=== PATIENT | male | born 1995 | race Caucasian/White ===

== ENCOUNTER 2024-03-26 20:53 | Emergency (ER) | payer MEDICAID ==
[~2024-03-26] VITALS: Ht 177.8 cm; Wt 70.0 kg
[2024-03-26 21:21] VITALS: O2SAT 100
[2024-03-27] MEDS ORDERED: FAMO40TA70 MT (01:45)
[2024-03-27 02:00] VITALS: BP 111/59; PULSE 74; RESP 18; TEMP 36.66960; O2SAT 100
== END 2024-03-27 02:00 | disposition home or self-care (01) ==
LOC: ER 20:53
DX: R07.89 Other chest pain (principal); K21.9 Gastro-esophageal reflux disease without esophagitis; Z90.49 Acquired absence of other specified parts of digestive tract
CPT/HCPCS: 71045; 93005; 99283

== ENCOUNTER 2024-06-11 22:56 | Emergency (ER) | payer MEDICAID, OTHER ==
[~2024-06-11] VITALS: Ht 175.3 cm; Wt 70.7 kg
[~2024-06-11 22:56] MED LIST: FAMO40TA70 MT
[2024-06-11 23:03] VITALS: O2SAT 99
[2024-06-12 00:09] LABS: CARBON DIOXIDE 28 mEq/L (21-32); CHLORIDE 106 mEq/L (98-107); SODIUM 142 mEq/L (136-145)
[2024-06-12 00:10] LABS: CALCIUM 9.4 mg/dL (8.7-10.4)
[2024-06-12 00:14] LABS: CREATININE 0.9 mg/dL (0.6-1.3)
[2024-06-12 00:15] LABS: GLUCOSE 124 mg/dL (70-105); UREA NITROGEN BLOOD 16 mg/dL (9-23)
[2024-06-12 00:16] LABS: ALANINE AMINOTRANSFERASE 15 IU/L (10-49)
[2024-06-12 00:17] LABS: ALBUMIN 4.5 g/dL (3.2-4.8); ASPARTATE AMINOTRANSFERASE 14 IU/L (<34); BILIRUBIN TOTAL 0.3 mg/dL (0.1-1.0); PROTEIN TOTAL 7.3 g/dL (6.0-8.3)
[2024-06-12 00:20] LABS: BILIRUBIN DIRECT < 0.1 mg/dL (<=3.0)
[2024-06-12 01:10] LABS: BASOPHILS % 0.3 % (0.0-2.0); EOSINOPHILS % 0.2 % (0.0-5.0); HEMATOCRIT. 41.1 % (42.0-52.0); HEMOGLOBIN. 13.7 g/dL (14.0-18.0); LYMPHOCYTES % 15.4 % (20.0-50.0); MEAN CORPUSCULAR HEMOGLOBIN 28.2 pg (28.0-32.0); MEAN CORPUSCULAR HGB CONC 33.3 g/dL (31.0-37.0); MEAN CORPUSCULAR VOLUME 84.6 fL (80.0-94.0); MEAN PLATELET VOLUME 11.4 fl (7.4-10.4); NEUTROPHILS % 80.1 % (40.0-76.0); PLATELET 207 x1000/uL (130-400); RED BLOOD CELL COUNT 4.86 mill/uL (4.7-6.1); RED CELL DISTRIBUTION WIDTH 13.5 % (11.6-14.6); WHITE BLOOD COUNT 11.8 x1000/uL (4.5-11.0)
[2024-06-12] MEDS ORDERED: POLY119P2 MT (01:37)
[2024-06-12 02:13] VITALS: BP 129/69; PULSE 68; RESP 18; TEMP 37; O2SAT 100
== END 2024-06-12 02:10 | disposition home or self-care (01) ==
LOC: ER 22:56
DX: K59.00 Constipation, unspecified (principal); K21.9 Gastro-esophageal reflux disease without esophagitis; Z90.49 Acquired absence of other specified parts of digestive tract; Z79.899 Other long term (current) drug therapy
CPT/HCPCS: 36415; 74018; 80048; 80076; 85025; 99284